=== PATIENT | female | born 1990 | race Caucasian/White ===

== ENCOUNTER 2017-03-09 18:56 | Inpatient (IN) | payer OTHER ==
[~2017-03-09] VITALS: Ht 154.9 cm; Wt 92.0 kg
[2017-03-10] MEDS ORDERED: PRENA1 CHEW TA1.4 M1 PO (21:27)
[2017-03-10] MEDS ORDERED: XYZAL5 M1 PO (21:27)
[2017-03-10] MEDS ORDERED: SINGULAIR10 M1 PO (21:27)
[2017-03-10 21:36] LABS: BASO % 0.1 % (0-2); EOS % 3.9 % (0-7); EOSINOPHIL ABSOLUTE COUNT 0.4 tho/cmm (0.0-0.7); HCT-HEMATOCRIT 32.2 % (34.0-49.0); HGB-HEMOGLOBIN 10.5 gm/dl (12.0-15.5); IMMATURE GRANULOCYTES ABSOLUTE 0.02 tho/cmm (0-0.03); IMMATURE GRANULOCYTES PERCENT 0.2 % (0-0.3); LYMPH % 25.5 % (20-45); LYMPH ABSOLUTE COUNT 2.3 tho/cmm (0.8-4.5); MCH (MEAN CORPUSCULAR HGB) 26.3 pg (28.0-32.0); MCHC MEAN CORPUSCULAR HGB CONC 32.6 % (32.0-36.0); MCV (MEAN CELL VOLUME) 80.7 fl (82.0-96.0); MEAN PLATELET VOLUME 9.5 cmc (9.4-12.4); MONO % 6.3 % (0-12); MONOCYTE ABSOLUTE COUNT 0.6 tho/cmm (0.0-1.2); NEUTROPHIL ABSOLUTE COUNT 5.8 tho/cmm (1.6-8.0); NEUTROPHIL-AUTOMATED 5.8 tho/cmm (1.6-8.0); PLATELET COUNT 331 tho/cmm (150-450); RED BLOOD COUNT 3.99 mil/cmm (4.00-5.20); RED CELL DISTRIBUTION WIDTH 14.7 % (12.4-16.4); WHITE BLOOD COUNT 9.1 tho/cmm (4.0-10.0)
[2017-03-11 21:05] LABS: BASO % 0.1 % (0-2); HCT-HEMATOCRIT 31.6 % (34.0-49.0); HGB-HEMOGLOBIN 10.4 gm/dl (12.0-15.5); IMMATURE GRANULOCYTES ABSOLUTE 0.08 tho/cmm (0-0.03); IMMATURE GRANULOCYTES PERCENT 0.4 % (0-0.3); LYMPH % 6.7 % (20-45); LYMPH ABSOLUTE COUNT 1.3 tho/cmm (0.8-4.5); MCH (MEAN CORPUSCULAR HGB) 26.3 pg (28.0-32.0); MCHC MEAN CORPUSCULAR HGB CONC 32.9 % (32.0-36.0); MCV (MEAN CELL VOLUME) 79.8 fl (82.0-96.0); MEAN PLATELET VOLUME 9.4 cmc (9.4-12.4); MONO % 7.4 % (0-12); MONOCYTE ABSOLUTE COUNT 1.5 tho/cmm (0.0-1.2); NEUTROPHIL ABSOLUTE COUNT 16.8 tho/cmm (1.6-8.0); NEUTROPHIL-AUTOMATED 16.8 tho/cmm (1.6-8.0); NEUTROPHILS % 85.4 % (40-80); PLATELET COUNT 305 tho/cmm (150-450); RED BLOOD COUNT 3.96 mil/cmm (4.00-5.20); RED CELL DISTRIBUTION WIDTH 14.9 % (12.4-16.4)
[2017-03-11 21:12] LABS: WHITE BLOOD COUNT 19.7 tho/cmm (4.0-10.0)
[2017-03-12 10:04] LABS: BASO % 0.1 % (0-2); EOS % 0.1 % (0-7); HCT-HEMATOCRIT 26.8 % (34.0-49.0); HGB-HEMOGLOBIN 8.7 gm/dl (12.0-15.5); IMMATURE GRANULOCYTES ABSOLUTE 0.04 tho/cmm (0-0.03); IMMATURE GRANULOCYTES PERCENT 0.2 % (0-0.3); LYMPH % 11.9 % (20-45); LYMPH ABSOLUTE COUNT 1.9 tho/cmm (0.8-4.5); MCH (MEAN CORPUSCULAR HGB) 26.3 pg (28.0-32.0); MCHC MEAN CORPUSCULAR HGB CONC 32.5 % (32.0-36.0); MEAN PLATELET VOLUME 9.6 cmc (9.4-12.4); MONO % 7.3 % (0-12); MONOCYTE ABSOLUTE COUNT 1.2 tho/cmm (0.0-1.2); NEUTROPHIL ABSOLUTE COUNT 12.9 tho/cmm (1.6-8.0); NEUTROPHIL-AUTOMATED 12.9 tho/cmm (1.6-8.0); NEUTROPHILS % 80.4 % (40-80); PLATELET COUNT 321 tho/cmm (150-450); RED BLOOD COUNT 3.31 mil/cmm (4.00-5.20); RED CELL DISTRIBUTION WIDTH 15.3 % (12.4-16.4); WHITE BLOOD COUNT 16.1 tho/cmm (4.0-10.0)
[2017-03-13] MEDS ORDERED: IBUPROFEN800 M1 PO (23:30)
[2017-03-15] MEDS ORDERED: FEOSOL325 M1 PO (09:39)
[2017-03-15] MEDS ORDERED: PERCOCET 5-3251 EACH PO (09:41)
[2017-03-15] MEDS ORDERED: COLACE100 M1 PO (09:44)
[2017-03-15] MEDS ORDERED: VITAMIN D31000 UNI3 PO (09:45)
== END 2017-03-15 15:00 | DRG 766 ==
LOC: LDR 18:56 → OBGE 03-10 18:30 → LDR 03-11 21:02 → OBGD 03-11 22:40 → OBGE 03-12 19:07 → LDR 03-14 05:10 → OBGE 03-15 15:00
PROVIDERS: Nurse Practitioner Family; Obstetrics & Gynecology; ADMIT Advanced Practice Midwife
PROC: 10D00Z1 Extraction of Products of Conception, Low, Open Approach (ICD-10-PCS; principal; 2017-03-11)
DX: O42.02 Full-term premature rupture of membranes, onset of labor within 24 hours of rupture (principal); D64.9 Anemia, unspecified; O62.1 Secondary uterine inertia; Z3A.39 39 weeks gestation of pregnancy; O26.86 Pruritic urticarial papules and plaques of pregnancy (PUPPP); O90.81 Anemia of the puerperium; Z37.0 Single live birth
CPT/HCPCS: J0456; J0690; J1170; J2210; J2550; J2590; J2795; J3010; J7050; J7121